=== PATIENT | male | born 1970 | race Caucasian/White ===

== ENCOUNTER → 2017-07-22 14:43 | Outpatient (CLI) | payer BC | END | disposition home or self-care (01) | LOC: D.US 14:30 | DX: N50.82 Scrotal pain (principal) ==

== ENCOUNTER → 2017-08-18 11:52 | Outpatient (CLI) | payer BC | END | disposition home or self-care (01) | LOC: D.US 11:52 | DX: N50.811 Right testicular pain (principal) ==

== ENCOUNTER 2017-08-19 10:55 | Emergency (ER) | payer SELFPAY | END 2017-08-19 14:50 | disposition left against medical advice (07) | LOC: D.ER 10:55 | DX: N50.82 Scrotal pain (principal) ==